=== PATIENT | male | born 1950 | race Caucasian/White ===

== ENCOUNTER 2020-05-03 14:42 | Outpatient (CLI) | payer MEDICARE ==
--- NOTE | 2020-05-03 15:25 | XRAY Report ---
PROCEDURE: Foot 3 View RT INDICATIONS: CONTUSION RIGHT FOOT TECHNIQUE: 3 views of the foot were acquired. COMPARISON: X-ray ankle 05/03/2020. FINDINGS: Bones: Comminuted distal fibular fracture with minimal displacement. No suspicious bony lesions. Soft tissues: No tibiotalar joint effusion. Achilles tendon appears normal. IMPRESSION: Comminuted distal fibular fracture is noted. Reviewed by: Althea Shea MD on 05/03/2020 3:24 PM PDT Approved by: Althea Shea MD on 05/03/2020 3:24 PM PDT Station ID: [id number]
--- NOTE | 2020-05-03 15:27 | XRAY Report ---
PROCEDURE: Ribs w/PA Chest RT INDICATIONS: CONTUSION OF RIGHT SHOULDER TECHNIQUE: 3 views of the right ribs were acquired, along with a single view chest. COMPARISON: X-ray shoulder 05/03/2020 FINDINGS: Surgical changes and devices: None. Bones and chest wall: No fractures or dislocations. No suspicious bony lesions. Overlying soft tis sues appear unremarkable. Lungs and pleura: No pleural effusions or pneumothorax. Lungs appear clear. Mediastinum: Mediastinal contours appear normal. Heart size is normal. IMPRESSION: No visualized acute fracture or dislocation. However, occult injury cannot be excluded. Recommend lin rt interval imaging follow-up in 7-10 days as clinically indicated for additional evaluation. Reviewed by: Althea Shea MD on 05/03/2020 3:25 PM PDT Approved by: Althea Shea MD on 05/03/2020 3:25 PM PDT Station ID: [id number]
--- NOTE | 2020-05-03 15:28 | XRAY Report ---
PROCEDURE: Shoulder 3 View RT INDICATIONS: CONTUSION OF RIGHT SHOULDER TECHNIQUE: 3 views of the shoulder were acquired. COMPARISON: None. FINDINGS: Bones: There is a slight inferior subluxation of the humeral head in relation to the glenohumeral scott nt. No suspicious bony lesions. Mild widening of the acromioclavicular joint space is present. Visual ized ribs appear intact. Irregularity of the right sixth rib is present, appearing chronic. However, recommend correlation of point tenderness. Soft tissues: No suspicious soft tissue calcifications. IMPRESSION: Slight inferior humeral head subluxation as above. There is mild widening of the acromio clavicular joint space suggestive of sprain. Reviewed by: Althea Shea MD on 05/03/2020 3:27 PM PDT Approved by: Althea Shea MD on 05/03/2020 3:27 PM PDT Station ID: [id number]
--- NOTE | 2020-05-03 15:29 | XRAY Report ---
PROCEDURE: Ankle 3 View RT INDICATIONS: SPRAIN OF RIGHT ANKLE TECHNIQUE: 3 views of the ankle were acquired. COMPARISON: X-ray foot 05/03/2020 FINDINGS: Bones: Minimally displaced comminuted distal fibular fracture. Ankle mortise is normally aligned. No suspicious bony lesions. Soft tissues: Ankle soft tissue edema is present. Achilles tendon appears normal. IMPRESSION: Minimally displaced distal fibular fracture. Reviewed by: Althea Shea MD on 05/03/2020 3:28 PM PDT Approved by: Althea Shea MD on 05/03/2020 3:28 PM PDT Station ID: [id number]
== END 2020-05-03 14:43 | disposition home or self-care (01) ==
LOC: DI.S 14:42
PROVIDERS: ATTEND Emergency Medicine
DX: S82.831A Other fracture of upper and lower end of right fibula, initial encounter for closed fracture (principal); S43.031A Inferior subluxation of right humerus, initial encounter; S93.412A Sprain of calcaneofibular ligament of left ankle, initial encounter; S90.31XA Contusion of right foot, initial encounter; S40.011A Contusion of right shoulder, initial encounter

== ENCOUNTER 2020-05-14 13:35 | Outpatient (CLI) | payer MEDICARE ==
--- NOTE | 2020-05-14 15:06 | XRAY Report ---
Reason: NONDISPLACED FX OF LATERAL MALLEOLUS OF RT FIBULA Procedure Date: 05/14/2020 Accession Number: [id number] / [id number] Procedure: XR - Ankle 3 View RT CPT Code: Final Report FULL RESULT: PROCEDURE: Ankle 3 View RT INDICATIONS: NONDISPLACED FX OF LATERAL MALLEOLUS OF RT FIBULA TECHNIQUE: 3 views of the ankle were acquired. COMPARISON: 05/03/2020 FINDINGS: Bones: Mildly displaced, minimally comminuted spiral fracture of distal fibula at the level of the syndesmosis with fracture fragments in relatively stable position compared to the prior study.. Ankle mortise is normally aligned. Small posterior fracture fragment dorsal to the tibia may be a nondisplaced posterior malleolar fracture or fragment from the fibular fracture. No suspicious bony lesions. Soft tissues: No tibiotalar joint effusion. Achilles tendon appears normal. IMPRESSION: 1. Stable position of mildly displaced fibular fracture at the syndesmotic level. 2. Mild comminution of fibular fracture and/or small fragment of posterior malleolar fracture. 3. No significant mortise widening with weightbearing. Reviewed by: Jerri Fontaine MD on 05/14/2020 3:04 PM PDT Approved by: Jerri Fontaine MD on 05/14/2020 3:04 PM PDT Station ID: [id number]
== END 2020-05-14 13:36 | disposition home or self-care (01) ==
LOC: DI 13:35
PROVIDERS: ATTEND Physician Assistant
DX: S82.64XA Nondisplaced fracture of lateral malleolus of right fibula, initial encounter for closed fracture (principal)

== ENCOUNTER 2020-06-05 09:57 | Outpatient (CLI) | payer MEDICARE ==
--- NOTE | 2020-06-06 06:18 | XRAY Report ---
PROCEDURE: Ankle 3 View RT INDICATIONS: DISPLACED FRACTURE RIGHT LATERAL MALLEOLUS TECHNIQUE: 3 views of the ankle were acquired. COMPARISON: 05/14/2020, 05/03/2020 FINDINGS: Bones: Again noted is slightly displaced and comminuted fracture involving distal fibular shaft/later al malleolus with stable ankle alignment. No significant callus formation at fracture site is seen. N o new fracture or dislocation. Ankle mortise is normally aligned. No suspicious bony lesions. Soft tissues: No tibiotalar joint effusion. Achilles tendon appears normal. Mild ankle soft tissue swelling is noted. IMPRESSION: Stable ankle alignment. No new fracture or dislocation. Mild ankle soft tissue swelling. Reviewed by: Franklin Herrera MD on 06/05/2020 10:46 AM [facility] Approved by: Franklin Herrera MD on 06/05/2020 10:46 AM [facility] Station ID: [id number]
== END 2020-06-05 23:59 | disposition home or self-care (01) ==
LOC: DI.WCP 09:57
PROVIDERS: ATTEND Orthopaedic Surgery
DX: S82.61XD Displaced fracture of lateral malleolus of right fibula, subsequent encounter for closed fracture with routine healing (principal)

== ENCOUNTER 2020-06-26 16:19 | Outpatient (CLI) | payer MEDICARE ==
--- NOTE | 2020-06-26 16:22 | XRAY Report ---
PROCEDURE: Ankle 3 View RT INDICATIONS: DISPLACED FRACTURE RIGHT LATERAL MALLEOLUS TECHNIQUE: 3 views of the ankle were acquired. COMPARISON: Similar study 06/05/2020 FINDINGS: Bones: No previously unidentified fractures or dislocations. There is continued healing of the diago nal fracture at the distal fibular metadiaphyseal junction. Slight widening of the medial ankle morti se joint is seen on the frontal projection. Ankle mortise is normally aligned. No suspicious bony le sions. Soft tissues: No tibiotalar joint effusion. Achilles tendon appears normal. IMPRESSION: Continued healing of right distal fibular metadiaphyseal junction fracture, mild widenin g of the ankle mortise joint as a result of prior trauma medially. Reviewed by: Moi Goodson MD on 06/26/2020 4:21 PM PDT Approved by: Moi Goodson MD on 06/26/2020 4:21 PM PDT Station ID: [id number]
== END 2020-06-26 23:59 | disposition home or self-care (01) ==
LOC: DI.WCP 16:19
PROVIDERS: ATTEND Orthopaedic Surgery
DX: S82.61XD Displaced fracture of lateral malleolus of right fibula, subsequent encounter for closed fracture with routine healing (principal)